=== PATIENT | male | born 1985 | race Caucasian/White ===

== ENCOUNTER → 2017-11-19 | Outpatient (CLI) | payer OTHER ==
--- NOTE | 2017-11-19 10:33 | DIAGNOSTIC IMAGING REPORT ---
RIGHT SHOULDER 2 VIEWS HISTORY: RIGHT SHOULDER PAIN COMPARISON: None. FINDINGS: There is no fracture or dislocation. Soft tissues are unremarkable. The right clavicle is intact. Mild AC joint arthrosis. IMPRESSION: Mild AC joint arthrosis. Otherwise, unremarkable right shoulder. Electronically signed by: Laci Parks M.D. 11/19/2017 10:32 AM Dictated Date/Time: 11/19/2017 10:31 AM
== END | disposition home or self-care (01) ==
LOC: C.RDSM 19:18
PROVIDERS: ATTEND Family Medicine
DX: M25.511 Pain in right shoulder (principal)

== ENCOUNTER → 2017-12-02 | Outpatient (CLI) | payer OTHER ==
[~2017-12-02] MED LIST: GADAVIST IV PRN
--- NOTE | 2017-12-02 12:12 | DIAGNOSTIC IMAGING REPORT ---
R UPPER EXT JOINT WITH CLINICAL HISTORY: R SHOULDER PAIN pain TECHNIQUE: Multiaxial MRI acquisition post shoulder arthrography COMPARISON STUDY: None FINDINGS: Hypertrophic change of the right acromioclavicular joint. Hypertrophic granulation tissue creates moderate impingement upon the superior surface of the supraspinatus musculotendinous junction. This appears to be creating moderate supraspinatus tendinitis. No evidence for rotator cuff tear. Glenoid labrum is grossly intact. Minimal apical maceration. Biceps tendon is unremarkable. All muscular structures indicate that the rotator cuff is intact. IMPRESSION: 1. Degenerative and hypertrophic change of the acromioclavicular joint. 2. This creates at least moderate to moderately significant impingement upon the supraspinatus musculotendinous juncture. 3. Moderate reactive supraspinatus tendinitis most likely due to the impingement described. 4. Rotator cuff is intact. The above report was generated using voice recognition software. It may contain grammatical, syntax or spelling errors. Electronically signed by: Yared Resendiz M.D. 12/02/2017 12:11 PM Dictated Date/Time: 12/02/2017 12:04 PM
--- NOTE | 2017-12-02 12:20 | DIAGNOSTIC IMAGING REPORT ---
R INJECTION SHOULDER PRE MRI FLUOROSCOPY TIME: 50 seconds HISTORY: Shoulder pain. R SHOULDER PAIN PROCEDURE: After obtaining written informed consent, the patient was placed supine on the fluoroscopy table. A suitable site for needle insertion was marked using fluoroscopic guidance. The right shoulder was prepped and draped in the usual sterile fashion. 1% lidocaine was used for skin, subcutaneous and deep soft tissue anesthesia. Under intermittent fluoroscopic guidance, a 22 gauge 2.5 inch spinal needle was inserted into the left glenohumeral joint. A total of 14 cc of one-to-one mixture of dilute Magnevist (0.1 cc in 10 cc saline) and Optiray 300 were injected. The needle was then removed. There were no apparent complications. The patient was transported to for further imaging. IMPRESSION: Fluoroscopic-guided right shoulder arthrogram without immediate complication. Total injected volume was 14 cc. MR portion of the examination will be dictated separately. The above report was generated using voice recognition software. It may contain grammatical, syntax or spelling errors. Electronically signed by: Yared Resendiz M.D. 12/02/2017 12:19 PM Dictated Date/Time: 12/02/2017 12:18 PM
== END | disposition home or self-care (01) ==
LOC: C.MRIBC 10:23
PROVIDERS: ATTEND Family Medicine
DX: M25.511 Pain in right shoulder (principal); M19.011 Primary osteoarthritis, right shoulder; M25.811 Other specified joint disorders, right shoulder; M75.81 Other shoulder lesions, right shoulder